=== PATIENT | female | born 1950 | race Caucasian/White ===

== ENCOUNTER → 2016-08-15 | Outpatient (CLI) | payer MEDICARE ==
[2016-08-15 09:17] LABS: Basophils % (A) 1 %; CH 30.3; Eosinophils # (A) 0.2 k/uL (0-0.7); Eosinophils % (A) 5 %; HCT 37.3 % (34.0-46.0); HDW 2.21; HGB 11.8 gm/dL (11.4-16.0); Luc # (Auto) 0.09; Luc % (Auto) 3; Lymphocytes # (A) 0.9 k/uL (1.0-4.8); Lymphocytes % (A) 26 %; MCH 30.2 pg (25.0-35.0); MCHC 31.7 g/dL (31.0-37.0); MCV 95.1 fL (80.0-100.0); Mean Platelet Volume 7.3; Monocytes # (A) 0.2 k/uL (0-1.0); Monocytes % (A) 6 %; Neutrophils # (A) 2.1 k/uL (1.3-7.7); Neutrophils % (A) 59 %; RBC 3.93 m/uL (3.80-5.40); RDW 13.1 % (11.5-15.5); WBC 3.5 k/uL (3.8-10.6); WBC (Perox) 3.65
[2016-08-15 09:27] LABS: ALT 32 U/L (9-52); AST 27 U/L (14-36); Alkaline Phosphatase 75 U/L (38-126); Anion Gap 7 mmol/L; Blood Urea Nitrogen 13 mg/dL (7-17); Calcium 9.3 mg/dL (8.4-10.2); Carbon Dioxide 28 mmol/L (22-30); Chloride 107 mmol/L (98-107); Cholesterol 205 mg/dL (<200); Glucose 90 mg/dL (74-99); HDL Cholesterol 69 mg/dL (40-60); Non-African American GFR(MDRD) >60 (>60 ml/min/1.73 sqM); Potassium 4.4 mmol/L (3.5-5.1); Sodium 142 mmol/L (137-145); Total Bilirubin 0.7 mg/dL (0.2-1.3); Total Protein 6.4 g/dL (6.3-8.2); Triglycerides 76 mg/dL (<150)
== END ==
LOC: LABWHC1 08:28
PROVIDERS: ATTEND Internal Medicine
DX: Z00.00 Encounter for general adult medical examination without abnormal findings (principal); E78.5 Hyperlipidemia, unspecified; I10 Essential (primary) hypertension; E55.9 Vitamin D deficiency, unspecified
CPT/HCPCS: 36415; 80053; 80061; 82306; 84439; 84443; 85025

== ENCOUNTER → 2017-12-04 | Outpatient (CLI) | payer MEDICARE ==
--- NOTE | 2017-12-04 14:33 | MM ---
Reason for exam: additional evaluation requested from prior study. Last mammogram was performed 2 years and 1 month ago. History: Patient is postmenopausal, has history of breast cancer at age 51, and has history of high-risk lesion on a previous biopsy at age 51. Family history of breast cancer in mother at age 70. High risk MG stereo VAD BX RT of the right breast, December 06, 2015. High risk excisional biopsy of the left breast, May 08, 2002. High risk stereotactic core biopsy of the left breast, April 24, 2002. High risk stereotactic core biopsy of the left breast, April 24, 2002. Core biopsy of the left breast. Excisional biopsy of the left breast. Lumpectomy of the left breast. Took hormonal contraceptives for 10 years. Took estrogen for 1 year beginning at age 35. Took tamoxifen for 5 years beginning at age 51. Physical Findings: Nurse did not find any significant physical abnormalities on exam. MG 3D Diag Mammo W/Cad OWEN Bilateral CC and MLO view(s) were taken. Prior study comparison: November 17, 2015, bilateral MG 3d diag mammo w/cad OWEN. August 05, 2014, bilateral MG diagnostic mammo w CAD OWEN. There are scattered fibroglandular densities. Distortion right upper outer quadrant middle position, may be post surgical change from 2016 biopsy. These results were verbally communicated with the patient and result sheet given to the patient on 12/04/17. ASSESSMENT: Probably benign, BI-RAD 3 RECOMMENDATION: Follow-up diagnostic mammogram of the right breast in 6 months.
--- NOTE | 2017-12-04 16:23 | BD ---
EXAMINATION TYPE: Axial Bone Density DATE OF EXAM: 12/04/2017 COMPARISON: NONE CLINICAL HISTORY: Height: 5 FT 3 1/2 IN Weight: 192 FRAX RISK QUESTIONS: History of Fracture in Adulthood: YES Secondary Osteoporosis: RISK FACTORS HISTORY OF: History of Wrist Fracture: LT WRIST When: 2017 Active: YES Postmenopausal woman: PART HYST AGE 35 Take estrogen and/or progesterone medications: TOOK ESTORGEN FOR ONE YEAR NO LONGER Lost more than 2 inches in height since high school: YES MEDICATIONS: Thyroid Medications: YES Which medication: LEVOTHYROXINE How Lon YEARS Additional Medications: LEVOTHYROXINE, BLOOD PRESSURE MEDS, PAXIL, Additional History: EXAM MEASUREMENTS: Bone mineral densitometry was performed using the [employer] System. Bone mineral density as measured about the Lumbar spine is: ----- L1-L4(G/cm2): 1.036 T Score Values are as follows: ----- L2: -0.9 ----- L3: -1.1 ----- L4: -1.2 ----- L1-L4: -1.2 Bone mineral density has: INCREASED 2.5 % since study of: 2014 Bone mineral density about the R hip (g/cm2): 0.935 Bone mineral density about the L hip (g/cm2): 0.848 T Score values are as follows: -----R Neck: -0.7 -----L Neck: -1.4 -----R Total: -0.3 -----L Total: -0.5 Bone mineral density has: DECREASED -3.7 % since study of: 2014 IMPRESSION: Osteopenia (T Score between -2.5 and -1). There is slightly increased risk of fracture and the patient may be considered for treatment. Re-Screen 2-5 years. NOTE: T-SCORE=SD OF THE YOUNG ADULT MEAN.
== END ==
LOC: RADMAMWWP 13:34
PROVIDERS: ATTEND Internal Medicine
DX: Z08 Encounter for follow-up examination after completed treatment for malignant neoplasm (principal); Z85.3 Personal history of malignant neoplasm of breast; M85.80 Other specified disorders of bone density and structure, unspecified site; Z78.0 Asymptomatic menopausal state
CPT/HCPCS: 77080; 77066; G0279; 77062

== ENCOUNTER → 2018-08-20 | Outpatient (CLI) | payer MEDICARE ==
--- NOTE | 2018-08-20 14:08 | MM ---
Reason for exam: follow-up at short interval from prior study. Last mammogram was performed 9 months ago. History: Patient is postmenopausal, has history of breast cancer at age 51, and has history of high-risk lesion on a previous biopsy at age 51. Family history of breast cancer in mother at age 70. High risk MG stereo VAD BX RT of the right breast, December 06, 2015. High risk excisional biopsy of the left breast, May 08, 2002. High risk stereotactic core biopsy of the left breast, April 24, 2002. High risk stereotactic core biopsy of the left breast, April 24, 2002. Core biopsy of the left breast. Excisional biopsy of the left breast. Lumpectomy of the left breast. Took hormonal contraceptives for 10 years. Took estrogen for 1 year beginning at age 35. Took tamoxifen for 5 years beginning at age 51. Physical Findings: Nurse did not find any significant physical abnormalities on exam. MG 3D Diag Mammo W/Cad RT CC and MLO view(s) were taken of the right breast. Prior study comparison: December 04, 2017, bilateral MG 3d diag mammo w/cad OWEN. November 17, 2015, bilateral MG 3d diag mammo w/cad OWEN. There are scattered fibroglandular densities. No suspicious abnormality. Post biopsy change on the right and oil cyst are noted and benign. These results were verbally communicated with the patient and result sheet given to the patient on 08/20/18. ASSESSMENT: Benign, BI-RAD 2 RECOMMENDATION: Routine screening mammogram of both breasts in 3 months. Back on schedule for November 2018.
== END | disposition home or self-care (01) ==
LOC: RADMAMWWP 12:59
PROVIDERS: ATTEND Internal Medicine
DX: R92.8 Other abnormal and inconclusive findings on diagnostic imaging of breast (principal)
CPT/HCPCS: 77065; G0279; 77061

== ENCOUNTER → 2018-08-28 | Outpatient (CLI) | payer MEDICARE ==
[2018-08-28 10:18] LABS: Basophils % (A) 1 %; Eosinophils # (A) 0.2 k/uL (0-0.7); Eosinophils % (A) 6 %; HCT 35.9 % (34.0-46.0); HGB 11.7 gm/dL (11.4-16.0); Lymphocytes # (A) 1.1 k/uL (1.0-4.8); Lymphocytes % (A) 30 %; MCH 30.8 pg (25.0-35.0); MCHC 32.5 g/dL (31.0-37.0); MCV 94.5 fL (80.0-100.0); Mean Platelet Volume 7.1; Monocytes # (A) 0.2 k/uL (0-1.0); Monocytes % (A) 6 %; Neutrophils % (A) 55 %; Platelet Count 219 k/uL (150-450); WBC 3.6 k/uL (3.8-10.6)
[2018-08-28 16:58] LABS: African American GFR (CKD) 87.2 (60.0-200.0); Albumin 4.1 g/dL (3.80-4.90); Albumin/Globulin Ratio 2.05 (1.60-3.17); BUN/Creat Ratio 17.5 Ratio (12.00-20.00); Calcium 9.1 mg/dL (8.7-10.3); LDL Cholesterol,Calculated 129.8 mg/dL (0.0-131.0); Potassium 4.8 mmol/L (3.5-5.5); Total Bilirubin 0.5 mg/dL (0.3-1.2); Total Protein 6.1 g/dL (6.2-8.2); VLDL Calculation 16.2 mg/dL (5.00-40.00)
== END | disposition home or self-care (01) ==
LOC: LABWHC1 09:44
PROVIDERS: ATTEND Internal Medicine
DX: E78.5 Hyperlipidemia, unspecified (principal); I10 Essential (primary) hypertension; E55.9 Vitamin D deficiency, unspecified
CPT/HCPCS: 36415; 80053; 80061; 82306; 84439; 84443; 85025

== ENCOUNTER → 2019-01-29 | Outpatient (CLI) | payer MEDICARE ==
--- NOTE | 2019-01-30 10:49 | MM ---
Reason for exam: screening (asymptomatic). Last mammogram was performed 5 months ago. History: Patient is postmenopausal, has history of breast cancer at age 51, and has history of high-risk lesion on a previous biopsy at age 51. Family history of breast cancer in mother at age 70. High risk MG stereo VAD BX RT of the right breast, December 06, 2015. High risk excisional biopsy of the left breast, May 08, 2002. High risk stereotactic core biopsy of the left breast, April 24, 2002. High risk stereotactic core biopsy of the left breast, April 24, 2002. Core biopsy of the left breast. Excisional biopsy of the left breast. Lumpectomy of the left breast. Took hormonal contraceptives for 10 years. Took estrogen for 1 year beginning at age 35. Took tamoxifen for 5 years beginning at age 51. Physical Findings: A clinical breast exam by your physician is recommended on an annual basis and results should be correlated with mammographic findings. MG 3D Screening Mammo W/Cad Bilateral CC, MLO, and XCCL view(s) were taken. Prior study comparison: August 20, 2018, right breast MG 3d diag mammo w/cad RT. December 04, 2017, bilateral MG 3d diag mammo w/cad OWEN. There are scattered fibroglandular densities. Stable oil cyst right breast. No significant changes when compared with prior studies. ASSESSMENT: Benign, BI-RAD 2 RECOMMENDATION: Routine screening mammogram of both breasts in 1 year.
== END | disposition home or self-care (01) ==
LOC: RADMAMWWP 09:27
PROVIDERS: ATTEND Internal Medicine
DX: Z12.31 Encounter for screening mammogram for malignant neoplasm of breast (principal)
CPT/HCPCS: 77063; 77067

== ENCOUNTER 2019-02-17 09:49 | Day surgery (SDC) | payer MEDICARE ==
[2019-02-10 12:13] VITALS: BMI 31.1
[~2019-02-17 09:49] MED LIST: SODIUM CHLORIDE 0.9% 1,000 ML IV SCH
[2019-02-17 10:35] VITALS: BP 179/80; PULSE 85; RESP 16; TEMP 97.7
[2019-02-17] MEDS ORDERED: SODIUM CHLORIDE 0.9% 500 ML 500 ML IV ONE (10:35)
--- NOTE | 2019-02-17 13:28 | P.PCN ---
Preoperative Diagnosis: Diagnosis Recurrent presyncope Twelve-lead ECG shows sinus mechanism 91 beats a minute normal AR narrow QRS normal ST segments Tilt table test per protocol Baseline blood pressure 200/88 mmHg, heart rate 92 beats a minute Patient was tilted upright at an angle of 70 per protocol She complained of being shaky and her heart was racing. She remained hypertensive throughout study She was very anxious to the procedure She was laid supine at the end of the procedure Impression Normal twelve-lead EKG Hypertension, both systolic and diastolic with heart rates in the 80s and 90s beats per minute No evidence for neurocardiogenic syncope
== END 2019-02-17 12:51 | disposition home or self-care (01) ==
LOC: CATHEP 09:49
PROVIDERS: ATTEND Internal Medicine Clinical Cardiac Electrophysiology
DX: R55 Syncope and collapse (principal); R00.2 Palpitations; I10 Essential (primary) hypertension; Z82.49 Family history of ischemic heart disease and other diseases of the circulatory system; Z87.891 Personal history of nicotine dependence; Z79.82 Long term (current) use of aspirin; Z79.890 Hormone replacement therapy; Z79.51 Long term (current) use of inhaled steroids; Z79.899 Other long term (current) drug therapy; Z88.5 Allergy status to narcotic agent
CPT/HCPCS: 93660

== ENCOUNTER → 2019-08-26 | Outpatient (CLI) | payer MEDICARE ==
[2019-08-26 16:42] LABS: African American GFR (CKD) 75.1 (60.0-200.0); Anion Gap 7.2 mmol/L (4.00-12.00); BUN/Creat Ratio 17.78 Ratio (12.00-20.00); Calcium 9.1 mg/dL (8.7-10.3); Carbon Dioxide 26.8 mmol/L (21.6-31.8); Non-African American GFR(CKD) 64.8 (60.0-200.0); Potassium 4.5 mmol/L (3.5-5.5)
== END | disposition home or self-care (01) ==
LOC: LABWHC1 09:37
PROVIDERS: ATTEND Internal Medicine Interventional Cardiology
DX: I10 Essential (primary) hypertension (principal)
CPT/HCPCS: 36415; 80048

== ENCOUNTER → 2020-03-22 | Outpatient (CLI) | payer MEDICARE ==
--- NOTE | 2020-03-22 10:12 | MM ---
Reason for exam: additional evaluation requested from prior study. Last mammogram was performed 1 year and 2 months ago. History: Patient is postmenopausal, has history of breast cancer at age 51, and has history of high-risk lesion on a previous biopsy at age 51. Family history of breast cancer in mother at age 70. High risk MG stereo VAD BX RT of the right breast, December 06, 2015. High risk excisional biopsy of the left breast, May 08, 2002. High risk stereotactic core biopsy of the left breast, April 24, 2002. High risk stereotactic core biopsy of the left breast, April 24, 2002. Core biopsy of the left breast. Excisional biopsy of the left breast. Lumpectomy of the left breast. Took hormonal contraceptives for 10 years. Took estrogen for 1 year beginning at age 35. Took tamoxifen for 5 years beginning at age 51. Physical Findings: Nurse did not find any significant physical abnormalities on exam. MG 3D Diag Mammo W/Cad OWEN Bilateral CC and MLO view(s) were taken. Prior study comparison: January 29, 2019, bilateral MG 3d screening mammo w/cad. August 20, 2018, right breast MG 3d diag mammo w/cad RT. There are scattered fibroglandular densities. Focal asymmetry right breast. No significant new findings when compared with previous films. These results were verbally communicated with the patient and result sheet given to the patient on 03/22/20. ASSESSMENT: Benign, BI-RAD 2 RECOMMENDATION: Follow-up diagnostic mammogram of both breasts in 1 year.
== END | disposition home or self-care (01) ==
LOC: RADMAMWWP 08:46
PROVIDERS: ATTEND Internal Medicine
DX: Z08 Encounter for follow-up examination after completed treatment for malignant neoplasm (principal); Z85.3 Personal history of malignant neoplasm of breast
CPT/HCPCS: 77066; G0279; 77062

== ENCOUNTER → 2021-01-24 | Outpatient (CLI) | payer MEDICARE ==
--- NOTE | 2021-01-24 14:37 | BD ---
EXAMINATION TYPE: Axial Bone Density DATE OF EXAM: 01/24/2021 COMPARISON: 12.04.2017 CLINICAL HISTORY: 70 YR OLD FEMALE.....ICD-10 CODE: M85.80 OSTEOPENIA Height: 64 Weight: 196 FRAX RISK QUESTIONS: Family History (Parent hip fracture): NO FX History of Fracture in Adulthood: YES RISK FACTORS HISTORY OF: HX OF LT THUMB FX AN ADULT, Family History of Osteoporosis: YES, MOTHER AND GR MOTHER NO FX Postmenopausal woman: YES AT 49 Lost more than 2 inches in height since high school: YES Hyperparathyroidism: NO Adrenal Insufficiency: NO MEDICATIONS: Thyroid Medications: YES, SYNTHROID FOR ABOUT 10 YRS Additional Medications: BP MEDS, PAXIL , TAMOXIFEN, STATIN FOR CHOLESTEROL, VIT D , , Additional History: HX OF BREAST CA BILAT, LUMPECTOMIES, TOMOXIN FOR 5 YRS, HYPERTENSION, LOOP RECORD ER, CHOLESTEROL, EXAM MEASUREMENTS: Bone mineral densitometry was performed using the [employer] System. Bone mineral density as measured about the Lumbar spine is: ----- L1-L4(G/cm2): 1.050 T Score Values are as follows: ----- L1: -2.0 ----- L2: -1.0 ----- L3: -1.1 ----- L4: -0.5 ----- L1-L4: -1.1 Bone mineral density has: Increased 2.4% since study of: 12.04.2017 Bone mineral density about the R hip (g/cm2): 0.976 Bone mineral density about the L hip (g/cm2): 0.942 T Score values are as follows: -----R Neck: -0.7 -----L Neck: -1.3 -----R Total: -0.2 -----L Total: -0.5 Bone mineral density has: Increased 0.2% since study of: 12.04.2017 FRAX%s: THERE IS A 14.6% CHANCE FOR A MAJOR OSTEOPOROTIC FX AND A1.9% FOR HIP......PROBABILITY FO R FX IN 10 YRS TIME IMPRESSION: Osteopenia (T Score between -2.5 and -1) remains present. There is slightly increased risk of fracture and the patient may be considered for treatment. Re-Screen 2-5 years. NOTE: T-SCORE=SD OF THE YOUNG ADULT MEAN.
== END | disposition home or self-care (01) ==
LOC: RADBDWWP 11:18
PROVIDERS: ATTEND Internal Medicine
DX: M85.89 Other specified disorders of bone density and structure, multiple sites (principal); Z78.0 Asymptomatic menopausal state
CPT/HCPCS: 77080

== ENCOUNTER → 2022-01-11 | Outpatient (CLI) | payer MEDICARE ==
[2022-01-11 10:43] LABS: Appearance,Urine Clear (Clear); Bacteria,Urine Occasional /hpf; Bilirubin,Urine Negative (Negative); Blood,Urine Negative (Negative); Color,Urine Yellow; Glucose,Urine (UA) Negative (Negative); Ketones,Urine Negative (Negative); Leukocyte Esterase,Urine Moderate (Negative); Mucus,Urine Occasional /hpf; Nitrite,Urine Negative (Negative); Protein,Urine Negative (Negative); RBC,Urine <1 /hpf (0-5); Specific Gravity,Urine 1.018 (1.001-1.035); Squamous Epithelial Cell,Urine 3 /hpf (0-4); Urobilinogen,Urine <2.0 mg/dL (<2.0); WBC,Urine 9 /hpf (0-5)
[2022-01-11 15:39] LABS: Basophils # (A) 0.06 X 10*3/uL (0.00-0.10); Basophils % (A) 1.5 %; Eosinophils # (A) 0.23 X 10*3/uL (0.04-0.35); Eosinophils % (A) 5.7 %; HCT 34.1 % (37.2-46.3); HGB 11.2 g/dL (12.0-15.0); Immature Grans, Automated 0.2 %; Lymphocytes # (A) 1.21 X 10*3/uL (0.90-5.00); Lymphocytes % (A) 30.2 %; MCHC 32.8 g/dL (32.0-37.0); MCV 94.5 fL (80.0-97.0); Mean Platelet Volume 10.3 fL (9.5-12.2); Monocytes # (A) 0.34 X 10*3/uL (0.20-1.00); Monocytes % (A) 8.5 %; NRBC Per 100 WBC 0 /100 WBCS (0.0-0.0); Neutrophils # (A) 2.16 X 10*3/uL (1.80-7.70); Neutrophils % (A) 53.9 %; Platelet Count 212 X 10*3/uL (140-440); RBC 3.61 X 10*6/uL (4.10-5.20); RDW 12.3 % (11.5-14.5); WBC 4.01 X 10*3/uL (4.50-10.00)
[2022-01-11 15:41] LABS: ALT 21 U/L (8-44); AST 23 U/L (13-35); African American GFR (CKD) 65.2 (60.0-200.0); Albumin 4.3 g/dL (3.8-4.9); Albumin/Globulin Ratio 1.79 (1.60-3.17); Alkaline Phosphatase 67 U/L (41-126); Blood Urea Nitrogen 18.8 mg/dL (9.0-27.0); Calcium 9.4 mg/dL (8.7-10.3); Chloride 105 mmol/L (96-109); Chol/HDL Ratio 2.53 Ratio; Globulin 2.4 g/dL (1.6-3.3); Glucose 96 mg/dL (70-110); LDL Cholesterol,Calculated 86.4 mg/dL (0.0-131.0); Non-African American GFR(CKD) 56.2 (60.0-200.0); Sodium 141 mmol/L (135-145); Total Protein 6.7 g/dL (6.2-8.2)
== END | disposition home or self-care (01) ==
LOC: LABWHC1 09:19
PROVIDERS: ATTEND Internal Medicine
DX: I10 Essential (primary) hypertension (principal); E03.9 Hypothyroidism, unspecified; M85.80 Other specified disorders of bone density and structure, unspecified site
CPT/HCPCS: 36415; 80053; 80061; 81001; 82306; 84439; 84443; 85025

== ENCOUNTER → 2022-02-15 | Outpatient (CLI) | payer MEDICARE ==
--- NOTE | 2022-02-16 16:37 | MM ---
Reason for Exam: Screening (asymptomatic). Last mammogram was performed 1 year(s) and 11 month(s) ago. Patient History: Menarche at age 9. First Full-Term at age 21. Hysterectomy at age 35. Postmenopausal. Patient has history of breast feeding. Breast cancer, left, age 51. Estrogen for 1 year from age 35 until age 36. Patient used Hormonal Contraceptives for 10 years. Tamoxifen for 5 years from age 51 until age 56. Lumpectomy on the Left side. Core Biopsy on the Left side. Excisional Biopsy on the Left side. 12/06/2015, High risk Core Biopsy on the right side. 05/08/2002, High risk Excisional Biopsy on the left side. 04/24/2002, High risk Stereotactic Core Biopsy on the left side. 04/24/2002, High risk Stereotactic Core Biopsy on the left side. Mother had breast cancer, age 70. Prior Study Comparison: 01/29/1997 Screening Mammogram, Unknown. 12/14/2005 Bilateral Diagnostic Mammogram, [facility]. 12/14/2005 Left Diagnostic Ultrasound, [facility]. 03/21/2007 Bilateral Diagnostic Mammogram, [facility]. 04/23/2008 Bilateral Diagnostic Mammogram, [facility]. 10/26/2010 Bilateral Diagnostic Mammogram, [facility]. 06/02/2012 Bilateral Diagnostic Mammogram, [facility] 06/02/2013 Bilateral Screening Mammogram, [facility]. 08/05/2014 Bilateral Diagnostic Mammogram, [facility]. 11/17/2015 Bilateral Diagnostic Mammogram, [facility]. 12/04/2017 Bilateral Diagnostic Mammogram, [facility]. 08/20/2018 Right Diagnostic Mammogram, [facility]. 01/29/2019 Bilateral Screening Mammogram, [facility]. 03/22/2020 Bilateral Diagnostic Mammogram, [facility]. Tissue Density: The breast tissue is almost entirely fat. Findings: Analyzed By CAD. Pattern appears stable. Spherical calcified structures in the right breast. Recorder is within the left breast. No significant interval changes are evident. No suspicious groups of microcalcifications, spiculated or lobular masses, architectural distortion or other secondary signs of malignancy are mammographically apparent. Overall Assessment: Benign, BI-RAD 2 Management: Screening Mammogram of both breasts in 1 year. A negative mammogram report should not preclude additional follow up of suspicious palpable abnormalities. Patient should continue monthly self breast exam. A clinical breast exam by your physician is recommended on an annual basis and results should be correlated with mammographic findings. Electronically signed and approved by: Manuel Calhoun D.O. Radiologis
== END | disposition home or self-care (01) ==
LOC: RADMAMWWP 11:28
PROVIDERS: ATTEND Internal Medicine
DX: Z12.31 Encounter for screening mammogram for malignant neoplasm of breast (principal); Z78.0 Asymptomatic menopausal state; Z80.3 Family history of malignant neoplasm of breast
CPT/HCPCS: 77063; 77067

== ENCOUNTER → 2023-02-26 | Outpatient (CLI) | payer MEDICARE ==
--- NOTE | 2023-02-26 12:05 | US ---
EXAMINATION TYPE: US carotid duplex BILAT DATE OF EXAM: 02/26/2023 COMPARISON: NONE CLINICAL INDICATION: Female, 72 years old with history of H93.A9 PULSATILE TINNITUS, UNSPECIFIED EAR; Tinnitus left ear TECHNIQUE: Carotid duplex ultrasound examination. Indirect Doppler criteria was utilized. FINDINGS: EXAM MEASUREMENTS: RIGHT: Peak Systolic Velocity (PSV) cm/sec ----- Right CCA: 71.5 ----- Right ICA: 116 ----- Right ECA: 94.7 ICA/CCA ratio: 1.62 RIGHT: End Diastole cm/sec ----- Right CCA: 17.5 ----- Right ICA: 26.4 ----- Right ECA: 8.0 LEFT: Peak Systolic Velocity (PSV) cm/sec ----- Left CCA: 88.4 ----- Left ICA: 194 ----- Left ECA: 119 ICA/CCA ratio: 2.19 LEFT: End Diastole cm/sec ----- Left CCA: 26.4 ----- Left ICA: 53.7 ----- Left ECA: 25.3 VERTEBRALS (direction of flow): Right Vertebral: Antegrade Left Vertebral: Antegrade Rhythm: Normal RAIL TECHNICIAN NOTES: Mild plaque bilateral bifurcations. Increased velocities left ICA IMPRESSION: 1. Moderate narrowing left internal carotid artery between 50 and 69%. Criteria for Assigning % of Stenosis / Diameter reduction (Estimation based on the indirect measurements of the internal carotid artery velocities (ICA PSV). 1. Normal (no stenosis)=ICA PSV < 125 cm/s: ratio < 2.0: ICA EDV<40 cm/s. 2. Less than 50% stenosis=ICA PSV < 125 cm/s: ratio < 2.0: ICA EDV<40 cm/s. 3. 50 to 69% stenosis=ICA PSV of 125 to 230 cm/s: ration 2.0 ? 4.0: ICA EDV 40-100 cm/s. 4. Greater than 70% stenosis to near occlusion= ICA PSV > 230 cm/s: ratio > 4.0: ICA EDV > 100 cm/s. 5. Near occlusion= ICA PSV velocities may be low or undetectable: variable ratio and ICA EDV. 6. Total occlusion=unable to detect flow.
== END | disposition home or self-care (01) ==
LOC: RADUSWWP 10:50
PROVIDERS: ATTEND Internal Medicine
DX: I65.22 Occlusion and stenosis of left carotid artery (principal); H93.A2 Pulsatile tinnitus, left ear
CPT/HCPCS: 93880

== ENCOUNTER → 2023-03-04 | Outpatient (CLI) | payer MEDICARE ==
--- NOTE | 2023-03-04 11:48 | P.SLEEP ---
History of Present Illness DATE: 03/04/2023 CONSULTATION/NEW PATIENT EVALUATION HISTORY OF PRESENT ILLNESS/SLEEP-WAKE EVALUATION: 72-year-old lady had been ev aluated in the sleep center for possible obstructive sleep apnea hypopnea syndrome. SLEEP SCHEDULE: Usually sleep schedule from 10:30 PM to 7:30 AM. FALLING ASLEEP: Sometimes patient has difficulties with falling asleep, watching clock at night. DURING SLEEP: Patient snores on the back position and wakes up from sleep 2 times with one episode of nocturia. No history of hypnogogical hallucinations, sleep paralysis, or cataplexy. DURING THE DAY/WAKE STATE: During the day patient may feel sleepiness especially afternoon. [place] sleepiness scale is 3. Patient may take short naps during the day. PAST MEDICAL HISTORY: Hypertension, asthma, hypothyroidism, anxiety. PAST SURGICAL HISTORY: Partial hysterectomy, breast lumpectomy, left leg surgery for venous problems, appendectomy. MEDICATIONS: Paroxetine 10 mg once a day, levothyroxine 37.5 g once a day, metoprolol 50 mg once a day, losartan 100 mg once a day, rosuvastatin 5 mg once a day, hydrochlorothiazide 25 mg once a day, Symbicort as needed. SOCIAL HISTORY: Negative for smoking, alcohol consumption occasional. FAMILY HISTORY: &, Hyperlipidemia, cancer, thyroid problems. REVIEW OF SYSTEMS: Snoring, awakenings from sleep, sleepiness during the day. No fevers. No double vision. No recent chest pain. No shortness of breath. No abdominal pain. No bleeding episodes. No blood in urine. No seizure episodes. PHYSICAL EXAMINATION: GENERAL: A pleasant patient without any distress. VITAL SIGNS: BP 118/59, HR 64, RR 16, weight 189.6 pounds, height 5 foot 4 inches, body mass index 32.4. HEENT: PERRLA, EOMI. Evaluation of oropharynx showed tongue protrudes midline, low position of soft palate Mallampati 4. NECK: Supple. No JVD. Thyroid is not palpable. 15.5 inches in circumference. LUNGS: Clear to percussion and to auscultation. Good air exchange. No wheezing or rhonchi. HEART: S1, S2 regular. No murmurs, gallops or rubs. ABDOMEN: Soft and nontender. Bowel sounds are present. No organomegaly appreciated. EXTREMITIES: No clubbing or cyanosis. FISHERIES DIRECTOR: Awake, alert, and oriented x3. Cranial nerves 2 to 7 intact. There is no fasciculation or atrophy noted. No focal deficits observed. ASSESSMENT: 1. Snoring, multiple awakenings from sleep, extremely low position of soft palate Mallampati 4, episodes of sleepiness during the day. Obstructive sleep apnea hypopnea syndrome. 2. Obesity, BMI 32.4. 3. Hypertension. 4. Asthma. 5 hypothyroidism. 6 . Anxiety. 7. Status post partial hysterectomy. 8. Status post bilateral lumpectomy from the breast [id number]. 9 . Status post left leg surgery for venous problems. 10. Status post appendectomy. PLAN: 1. Polysomnography for evaluation of patient's breathing during sleep. 2. CPAP/BiPAP titration if sleep study confirms obstructive sleep apnea- hypopnea syndrome. 3. Preferable position during sleep on the side. 4. No driving if patient feels any sleepiness. Patient is aware of civil and criminal liability for unsafe driving. 5. Sleep hygiene with regular sleep time for at least 7.5-8 hours. 6. Watching and losing weight. 7. No watching clock at night. Thank you very much for referring this patient for consultation. Sincerely, Phillip Villanueva MD, PhD, FAASM. Diplomat of [place], Sleep Medicine Board by [place] [employer] Patent Solicitor of [facility] [place] pain a few located Past Medical History Past Medical History: Asthma, Hypertension, Pneumonia, Syncope, Thyroid Disorder Additional Past Medical History / Comment(s): intermittent lightheadedness for over a year, see Dr Glasgow [facility] & [facility], IBS @times, took tamoxifen for 5 years after left breast lumpectomy History of Any Multi-Drug Resistant Organisms: None Reported Past Surgical History: Appendectomy, Breast Surgery, Hysterectomy Additional Past Surgical History / Comment(s): RIGHT LEG-VEIN STRIPPING, LEFT BREAST -LUMPECTOMY, right breast bx. Past Anesthesia/Blood Transfusion Reactions: Motion Sickness, Postoperative Nausea & Vomiting (PONV) Past Alcohol Use History: Rare - Past Family History Mother Family Medical History: Cancer Additional Family Medical History / Comment(s): BREAST CANCER Medications and Allergies Home Medications Medication Instructions Recorded Confirmed Type Budesonide-Formot 160-4.5 Mcg 2 puff INHALATION BID PRN 12/29/15 12/11/22 History [Symbicort 160-4.5 Mcg Inhaler] Levothyroxine Sodium [Synthroid] 37.5 tab PO DAILY 12/29/15 12/11/22 History PARoxetine [Paxil] 10 mg PO DAILY 12/29/15 12/11/22 History Metoprolol Succinate (ER) [Toprol 50 mg PO DAILY 11/13/19 12/11/22 History Xl] Cholecalciferol [Vitamin D3 (25 100 mcg PO DAILY 06/15/21 12/11/22 History Mcg = 1000 Iu)] Losartan Potassium 50 mg PO BID 06/15/21 12/11/22 History Rosuvastatin Calcium [Crestor] 5 mg PO HS 06/15/21 12/11/22 History Allergies Allergy/AdvReac Type Severity Reaction Status Date / Time codeine Allergy Hallucinations, Verified 12/11/22 08:23 VOMITING Sleep Note - Sleep Note Sleep Note: Temperature: Pulse Rate: Respiratory Rate: Blood Pressure: SpO2: Height: Weight: BMI: Neck Circumference:
== END ==
LOC: 3 N SLEEP 10:40
PROVIDERS: ATTEND Internal Medicine
DX: G47.33 Obstructive sleep apnea (adult) (pediatric) (principal); R06.83 Snoring; E66.9 Obesity, unspecified; I10 Essential (primary) hypertension; J45.909 Unspecified asthma, uncomplicated; E03.9 Hypothyroidism, unspecified; F41.9 Anxiety disorder, unspecified; Z90.711 Acquired absence of uterus with remaining cervical stump; Z90.13 Acquired absence of bilateral breasts and nipples; Z90.49 Acquired absence of other specified parts of digestive tract; Z68.32 Body mass index [BMI] 32.0-32.9, adult; Z88.5 Allergy status to narcotic agent; Z79.899 Other long term (current) drug therapy; Z87.891 Personal history of nicotine dependence
CPT/HCPCS: 99211

== ENCOUNTER → 2023-03-20 | Outpatient (CLI) | payer MEDICARE ==
--- NOTE | 2023-03-20 09:06 | US ---
EXAMINATION TYPE: US abdomen complete DATE OF EXAM: 03/20/2023 COMPARISON: NONE CLINICAL INDICATION: Female, 72 years old with history of R74.01 ELEVATION OF LEVELS OF LIVER TRANSA N18.31; CKD TECHNIQUE: Multiple sonographic images of the abdomen are obtained. FINDINGS: EXAM MEASUREMENTS: Liver Length: 12.2 cm Gallbladder Wall: 0.15 cm CBD: 0.23 cm Spleen: 9.1 x 8.4 x 3.8 cm Right Kidney: 10.4 x 5.0 x 4.7 cm Left Kidney: 9.2 x 4.0 x 4.1 cm CUSTODIAL WORKER NOTES: Difficult exam due to overlying bowel and bowel gas Pancreas: Body and tail obscured by overlying bowel gas Liver: Somewhat limited evaluation; appears wnl Gallbladder: Appears wnl; limited by overlying bowel gas Evidence for sonographic Louise's sign: No CBD: wnl Spleen: wnl Right Kidney: wnl Left Kidney: wnl Upper IVC: wnl Abd Aorta: wnl IMPRESSION: 1. No acute ultrasound abnormality
== END | disposition home or self-care (01) ==
LOC: RADUSWWP 08:17
PROVIDERS: ATTEND Internal Medicine
DX: N18.31 Chronic kidney disease, stage 3a (principal); R74.01 Elevation of levels of liver transaminase levels
CPT/HCPCS: 76700

== ENCOUNTER → 2023-04-01 | Outpatient (CLI) | payer MEDICARE ==
--- NOTE | 2023-04-01 11:49 | BD ---
EXAMINATION TYPE: Axial Bone Density DATE OF EXAM: 04/01/2023 CLINICAL HISTORY: 72 years old Female. ICD-10 CODE: M85.80 OTH DISRD OF BONE DENSITY Height: 64 in Weight: 188 lbs FRAX RISK QUESTIONS: History of Fracture in Adulthood: lt hand fx age 67 Secondary Osteoporosis: 3. Menopause before 44: partial hysterectomy age 34 RISK FACTORS HISTORY OF: Family History of Osteoporosis: yes mom and grandmother (m) Active: moderate Diet low in dairy products/other sources of calcium: yes Postmenopausal woman: partial hysterectomy age 34 Lost more than 2 inches in height since high school: yes 3" MEDICATIONS: Thyroid Medications: yes Which medication: Levothyroxine How Lon+ years Additional Medications: vit d, blood pressure meds, anxiety meds, water pill, EXAM MEASUREMENTS: Bone mineral densitometry was performed using the [employer] System. Bone mineral density as measured about the Lumbar spine is: ----- L1-L4(G/cm2): 1.007 T Score Values are as follows: ----- L1: -1.8 ----- L2: -1.4 ----- L3: -1.7 ----- L4: -1.1 ----- L1-L4: -1.4 Z Score Values are as follows: ----- L1: -0.8 ----- L2: -0.3 ----- L3: -0.6 ----- L4: 0.0 ----- L1-L4: -0.4 Bone mineral density has: Decreased -4.1% since study of: 01/24/2021 Bone mineral density about the R hip (g/cm2): 0.932 Bone mineral density about the L hip (g/cm2): 0.924 T Score values are as follows: -----R Neck: -1.2 -----L Neck: -1.2 -----R Total: -0.6 -----L Total: -0.7 Z Score values are as follows: -----R Neck: 0.3 -----L Neck: 0.2 -----R Total: 0.6 -----L Total: 0.5 Bone mineral density has: Decreased -3.2% since study of: 01/24/2021 FRAX%s: The graph provided illustrates a 14.9% chance for a major osteoporotic fx and a 2.1% chance f or the hips probability for fx in 10 years time. IMPRESSION: Osteopenia (T Score between -2.5 and -1). There is slightly increased risk of fracture and the patient may be considered for treatment. Re-Screen 2-5 years. NOTE: T-SCORE=SD OF THE YOUNG ADULT MEAN.
--- NOTE | 2023-04-02 11:38 | MM ---
Reason for Exam: Screening (asymptomatic). Last mammogram was performed 1 year(s) and 1 month(s) ago. Patient History: Menarche at age 9. First Full-Term at age 21. Hysterectomy at age 35. Postmenopausal. Patient has history of breast feeding. Breast cancer, left, age 51. Estrogen for 1 year from age 35 until age 36. Patient used Hormonal Contraceptives for 10 years. Tamoxifen for 5 years from age 51 until age 56. Lumpectomy on the Left side. Core Biopsy on the Left side. Excisional Biopsy on the Left side. 12/06/2015, High risk Core Biopsy on the right side. 05/08/2002, High risk Excisional Biopsy on the left side. 04/24/2002, High risk Stereotactic Core Biopsy on the left side. 04/24/2002, High risk Stereotactic Core Biopsy on the left side. Mother had breast cancer, age 70. Prior Study Comparison: 11/17/2015 Bilateral Diagnostic Mammogram, [facility]. 12/04/2017 Bilateral Diagnostic Mammogram, [facility]. 08/20/2018 Right Diagnostic Mammogram, [facility]. 01/29/2019 Bilateral Screening Mammogram, [facility]. 03/22/2020 Bilateral Diagnostic Mammogram, [facility]. 02/15/2022 Bilateral MG 3D screening mammo w/cad, [facility]. Tissue Density: The breast tissue is almost entirely fat. Findings: Analyzed By CAD. Right breast stenosis. (Loop recorder. There is no suspicious group of microcalcifications or new suspicious mass. Overall Assessment: Benign, BI-RAD 2 Management: Screening Mammogram of both breasts in [address] [facility] will attempt to contact patient to return for supplemental views and ultrasound if indicated. Patient should continue monthly self-breast exams. A clinical breast exam by your physician is recommended on an annual basis. This exam should not preclude additional follow-up of suspicious palpable abnormalities. Note on Geovanna scores and lifetime risk: 1. A Geovanna score greater than 3% is considered moderate risk. If this is the case, consider specialist referral to assess eligibility for a risk reducing agent. 2. If overall lifetime risk for the development of breast cancer is 20% or higher, the patient may qualify for future screening with alternating mammogram and breast MRI. Electronically signed and approved by: Scooby Vernon DO
== END | disposition home or self-care (01) ==
LOC: RADMAMWWP 08:28
PROVIDERS: ATTEND Internal Medicine
DX: Z12.31 Encounter for screening mammogram for malignant neoplasm of breast (principal); M85.89 Other specified disorders of bone density and structure, multiple sites; Z78.0 Asymptomatic menopausal state; Z80.3 Family history of malignant neoplasm of breast
CPT/HCPCS: 77063; 77067; 77080

== ENCOUNTER → 2023-04-01 | Outpatient (CLI) | payer MEDICARE ==
[2023-04-01 10:49] LABS: NT-Pro-B-Type Natriuretic Pept 438 pg/mL
[2023-04-01 10:50] LABS: African American GFR (CKD) 59 (>60 ml/min/1.73 sqM); Anion Gap 7 mmol/L; Blood Urea Nitrogen 27 mg/dL (7-17); Calcium 9.5 mg/dL (8.4-10.2); Carbon Dioxide 30 mmol/L (22-30); Chloride 104 mmol/L (98-107); Glucose 100 mg/dL (74-99); Magnesium 2.1 mg/dL (1.6-2.3); Non-African American GFR(CKD) 51 (>60 ml/min/1.73 sqM); Potassium 4.8 mmol/L (3.5-5.1); Sodium 141 mmol/L (137-145)
--- NOTE | 2023-04-01 13:01 | CT ---
EXAMINATION TYPE: CT angio head neck CT DLP: 1451.8 mGycm, Automated exposure control for dose reduction was used. DATE OF EXAM: 04/01/2023 11:37 AM COMPARISON: 07/18/2009. CLINICAL INDICATION:Female, 72 years old with history of H93.A9 PULSATILE TINNITUS, UNSPECIFIED EAR; PHH, tinnitus left ear TECHNIQUE: Axially acquired helical CT angiogram of the head and neck was obtained with contrast. Axi al images are supplemented with 3D reconstructions and MIP images which were post-processed at an in dependent workstation. NASCET criteria used. Contrast used:65 mL of Isovue 370 with IV Contrast, Oral contrast used: None. FINDINGS: CTA HEAD: No evidence of acute intracranial hemorrhage, mass effect, or midline shift. The ventricles, sulci, a nd cisterns are unremarkable. Normal course of the internal carotid arteries to the petrous portion o f the temporal bones bilaterally. No evidence for carotid dehiscence. No aberrant course of the inter nal carotid arteries. The visualized portions of the internal carotid arteries, middle cerebral arteries, anterior cerebral arteries, and posterior cerebral arteries are patent. The basilar and vertebral arteries are patent. CTA NECK: Right Carotid System: The common carotid and external carotid arteries are patent. There is less than 25% stenosis at the c arotid bifurcation secondary to calcified/noncalcified plaque. The rest of the internal carotid arter y is patent. Left Carotid System: The common carotid and external carotid arteries are patent. There is less than 25% stenosis at the c arotid bifurcation secondary to calcified/noncalcified plaque. The rest of the internal carotid arter y is patent. Vertebral arteries are patent without evidence hemodynamically significant stenosis. There is a three-vessel aortic arch. The origins of the great vessels are patent. No evidence of hemo dynamically significant stenosis. Upper thorax: IMPRESSION: 1. Normal course of the internal carotid arteries through the petrous portion of the temporal bones. No evidence of dissection of the cervical internal carotid arteries or vertebral arteries or any evid ence of significant stenosis at the carotid bifurcations. 2. No evidence of intracranial high-grade stenosis or intracranial aneurysm.
== END | disposition home or self-care (01) ==
LOC: RADCTMAIN 08:07
PROVIDERS: ATTEND Internal Medicine
DX: H93.A2 Pulsatile tinnitus, left ear (principal); I50.9 Heart failure, unspecified
CPT/HCPCS: 83880; 80048; 83735; 70496; 70498; 36415; Q9967

== ENCOUNTER → 2023-07-01 | Outpatient (CLI) | payer MEDICARE ==
[2023-07-01 21:07] LABS: NT-Pro-B-Type Natriuretic Pept 556 pg/mL (0-125)
[2023-07-01 21:36] LABS: BUN/Creat Ratio 19.77 Ratio (12.00-20.00); Blood Urea Nitrogen 25.7 mg/dL (9.0-27.0); Calcium 9.7 mg/dL (8.7-10.3); Chloride 104 mmol/L (96-109); Glucose 97 mg/dL (70-110); Magnesium 2.1 mg/dL (1.5-2.4); Potassium 4.8 mmol/L (3.5-5.5); Sodium 143 mmol/L (135-145)
== END | disposition home or self-care (01) ==
LOC: LABWHC1 09:58
PROVIDERS: ATTEND Internal Medicine Cardiovascular Disease
DX: I50.9 Heart failure, unspecified (principal); I42.8 Other cardiomyopathies; I51.9 Heart disease, unspecified
CPT/HCPCS: 36415; 80048; 83735; 83880

== ENCOUNTER → 2023-09-18 | Outpatient (CLI) | payer MEDICARE ==
[2023-09-18 16:55] LABS: Blood Urea Nitrogen 29.1 mg/dL (9.0-27.0); Chloride 104 mmol/L (96-109); Glucose 92 mg/dL (70-110); NT-Pro-B-Type Natriuretic Pept 576 pg/mL (0-125); Potassium 5.1 mmol/L (3.5-5.5); Sodium 143 mmol/L (135-145)
[2023-09-18 16:56] LABS: Calcium 9.4 mg/dL (8.7-10.3); Magnesium 2.1 mg/dL (1.5-2.4)
== END | disposition home or self-care (01) ==
LOC: LABWHC1 09:22
PROVIDERS: ATTEND Internal Medicine Cardiovascular Disease
DX: I50.9 Heart failure, unspecified (principal); I42.8 Other cardiomyopathies; I51.9 Heart disease, unspecified
CPT/HCPCS: 36415; 80048; 83735; 83880

== ENCOUNTER → 2023-09-27 | Outpatient (CLI) | payer MEDICARE ==
--- NOTE | 2023-09-27 15:46 | CA ---
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 67 - 155 / 56 - 104 cm??? LV Systolic Volume MOD BP 26.2 cm??? 22 - 58 / 19 - 49 cm??? LV Ejection Fraction MOD BP 65.4 % >= 55 % LV Cardiac Index MOD BP 1458.7 cm???/min???m??? LV Diastolic Volume MOD 4C 78.4 cm??? LV Systolic Volume MOD 4C 27.9 cm??? LV Ejection Fraction MOD 4C 64.4 % LV Cardiac Index MOD 4C 1483.6 cm???/min???m??? LV Diastolic Length 4C 7.4 cm LV Systolic Length 4C 6.1 cm LV Diastolic Volume MOD 2C 64.2 cm??? LV Systolic Volume MOD 2C 20.7 cm??? LV Ejection Fraction MOD 2C 67.7 % LV Cardiac Index MOD 2C 1278.3 cm???/min???m??? LV Diastolic Length 2C 6.4 cm LV Systolic Length 2C 5.1 cm LA Volume 72.1 cm??? 18 - 58 / 22 - 52 cm??? LA Volume Index 36.6 cm???/m??? 16 - 28 cm???/m??? M-MODE Aortic Root Diameter MM 2.9 cm LA Systolic Diameter MM 3.9 cm LA Ao Ratio MM 1.3 AV Cusp Separation MM 2.0 cm DOPPLER AV Peak Velocity 139.8 cm/s AV Peak Gradient 7.8 mmHg AV Mean Velocity 92.8 cm/s AV Mean Gradient 3.9 mmHg AV Velocity Time Integral 33.8 cm MV Area PHT 3.1 cm??? Mitral E Point Velocity 99.2 cm/s Mitral A Point Velocity 61.3 cm/s Mitral E to A Ratio 1.6 MV Deceleration Time 246.9 ms TR Peak Velocity 301.1 cm/s TR Peak Gradient 36.3 mmHg Right Atrial Pressure 10.0 mmHg Pulmonary Artery Systolic Pressu 46.3 mmHg Right Ventricular Systolic Press 46.3 mmHg FINDINGS Left Ventricle Left ventricular ejection fraction is estimated at 55-60 %. Mildly increased posterior wall thickness. Normal left ventricular systolic function with no obvious regional wall motion abnormalities. Left ventricular cavity size normal. Right Ventricle Normal right ventricular size and function. Moderate pulmonary hypertension. Right Atrium Mild right atrial dilatation. Left Atrium Moderately increased left atrial diameter. Moderately increased left atrial volume. Mildly increased left atrial area. Mitral Valve Structurally normal mitral valve. [id number] mitral regurgitation. No mitral stenosis. Aortic Valve Trileaflet aortic valve. No aortic valve stenosis or regurgitation. Tricuspid Valve Structurally normal tricuspid valve. Moderate tricuspid regurgitation. No tricuspid stenosis. Pulmonic Valve Structurally normal pulmonic valve. Trace pulmonic regurgitation. No pulmonic stenosis. Pericardium No pericardial or pleural effusion. Aorta Normal size aortic root and proximal ascending aorta. CONCLUSIONS Left ventricular ejection fraction 55-60% Mildly increased left ventricular wall thickness RVSP 46 Mild to moderately dilated left atrium Mild to moderate mitral regurgitation Moderate tricuspid regurgitation No pericardial effusion Previewed by: Dr. Raul Henry DO (Electronically Signed) Final Date: 27 September 2023 15:45
== END | disposition home or self-care (01) ==
LOC: RADECHMAIN 11:21
PROVIDERS: ATTEND Internal Medicine
DX: I27.21 Secondary pulmonary arterial hypertension (principal); I08.1 Rheumatic disorders of both mitral and tricuspid valves
CPT/HCPCS: 93306

== ENCOUNTER → 2024-01-24 | Outpatient (CLI) | payer MEDICARE ==
--- NOTE | 2024-01-31 10:22 | P.PCN ---
Date of Procedure: 01/24/24 Operative Findings: This is a home sleep study report Date of service is 01/24/2024 History A 73-year-old female patient being evaluated for pulmonary hypertension and a home sleep study was ordered to rule out underlying obstructive sleep apnea or nocturnal oxygen desaturations contributing to her pulm hypertension. Pertinent physical findings The patient is 5 feet and 4 inches, weight is 182 with a BMI of 31.2 Technical description The [employer] system was used to complete his home sleep study. This is a type III home sleep study evaluation. Total recording duration was 8 hours. The study started at 11:10 PM and ended at 7:11 AM. This was an adequate study as the patient had a total of 7 hours and 49 minutes of flow evaluation and 7 hours and 50 minutes of oxygen saturation evaluations. Results Respiratory analysis showed a total of 5 obstructive apneas and 13 obstructive hypopneas and the resulting AHI was 2.3 Oxygenation analysis The patient had a baseline pulse ox of 96% room air oxygen. Average pulse ox was 94%. Lowest pulse ox of 89%. No significant desaturations under 89%. Cardiac summary Average heart rate of 55 with a minimum heart rate of 45 and a maximum rate of 89 Assessment Primary snoring without evidence of any sleep breathing disorder. AHI is at 2. 3. No significant nocturnal oxygen desaturations Assessment This is a negative study for sleep breathing disorder. No oxygen desaturations. Patient needs to be screened for alternative causes of pulmonary hypertension other than sleep breathing disorder.
== END ==
LOC: 3 N SLEEP 13:28
PROVIDERS: ATTEND Internal Medicine Critical Care Medicine
DX: G47.33 Obstructive sleep apnea (adult) (pediatric) (principal); I27.20 Pulmonary hypertension, unspecified; Z88.5 Allergy status to narcotic agent; Z79.899 Other long term (current) drug therapy; Z87.891 Personal history of nicotine dependence

== ENCOUNTER → 2024-03-04 | Outpatient (CLI) | payer MEDICARE ==
[2024-03-04 15:28] LABS: NT-Pro-B-Type Natriuretic Pept 636 pg/mL (0-125)
[2024-03-04 15:43] LABS: BUN/Creat Ratio 22.87 Ratio (12.00-20.00); Blood Urea Nitrogen 34.3 mg/dL (9.0-27.0); Calcium 9.4 mg/dL (8.7-10.3); Carbon Dioxide 25.2 mmol/L (21.6-31.8); Chloride 102 mmol/L (96-109); Glucose 91 mg/dL (70-110); Potassium 4.7 mmol/L (3.5-5.5); Sodium 141 mmol/L (135-145)
== END | disposition home or self-care (01) ==
LOC: LABWHC1 10:03
PROVIDERS: ATTEND Internal Medicine Cardiovascular Disease
DX: I50.9 Heart failure, unspecified (principal); I42.8 Other cardiomyopathies; I51.9 Heart disease, unspecified; D50.9 Iron deficiency anemia, unspecified; D64.9 Anemia, unspecified; D86.85 Sarcoid myocarditis; D86.0 Sarcoidosis of lung
CPT/HCPCS: 36415; 80048; 83735; 83880

== ENCOUNTER → 2024-04-14 | Outpatient (CLI) | payer MEDICARE ==
--- NOTE | 2024-04-14 13:26 | MM ---
Reason for Exam: Screening (asymptomatic). Last screening mammogram was performed 12 month(s) ago. Patient History: Menarche at age 9. First Full-Term at age 21. Hysterectomy at age 35. Postmenopausal. Patient has history of breast feeding. Breast cancer, left, age 51. Estrogen for 1 year from age 35 until age 36. Patient used Hormonal Contraceptives for 10 years. Tamoxifen for 5 years from age 51 until age 56. Lumpectomy on the Left side. Core Biopsy on the Left side. Excisional Biopsy on the Left side. 12/06/2015, High risk Core Biopsy on the right side. 05/08/2002, High risk Excisional Biopsy on the left side. 04/24/2002, High risk Stereotactic Core Biopsy on the left side. 04/24/2002, High risk Stereotactic Core Biopsy on the left side. Mother had breast cancer, age 70. Prior Study Comparison: 03/22/2020 Bilateral Diagnostic Mammogram, [facility]. 02/15/2022 Bilateral MG 3D screening mammo w/cad, [facility]. 04/01/2023 Bilateral MG 3D screening mammo w/cad, [facility]. Tissue Density: The breasts are almost entirely fatty. Findings: Analyzed By CAD. Right breast: There is no suspicious group of microcalcifications or new suspicious mass. Benign-appearing calcifications right breast. Left breast: There is no suspicious group of microcalcifications or new suspicious mass. Overall Assessment: Benign, BI-RAD 2 Management: Screening Mammogram of both breasts in [address] [facility] will attempt to contact patient to return for supplemental views and ultrasound if indicated. Patient should continue monthly self-breast exams. A clinical breast exam by your physician is recommended on an annual basis. This exam should not preclude additional follow-up of suspicious palpable abnormalities. Note on Geovanna scores and lifetime risk: 1. A Geovanna score greater than 3% is considered moderate risk. If this is the case, consider specialist referral to assess eligibility for a risk reducing agent. 2. If overall lifetime risk for the development of breast cancer is 20% or higher, the patient may qualify for future screening with alternating mammogram and breast MRI. [facility], , 04/14/2024 1:22 PM. Electronically signed and approved by: Scooby Vernon DO
== END | disposition home or self-care (01) ==
LOC: RADMAMWWP 12:51
PROVIDERS: ATTEND Internal Medicine
DX: Z12.31 Encounter for screening mammogram for malignant neoplasm of breast (principal); R92.313 Mammographic fatty tissue density, bilateral breasts; Z78.0 Asymptomatic menopausal state; Z80.3 Family history of malignant neoplasm of breast; R92.1 Mammographic calcification found on diagnostic imaging of breast
CPT/HCPCS: 77063; 77067

== ENCOUNTER → 2024-07-08 | Outpatient (CLI) | payer MEDICARE ==
[2024-07-08 15:40] LABS: BUN/Creat Ratio 21.25 Ratio (12.00-20.00); Blood Urea Nitrogen 25.5 mg/dL (9.0-27.0); Calcium 9.5 mg/dL (8.7-10.3); Carbon Dioxide 26.3 mmol/L (21.6-31.8); Chloride 104 mmol/L (96-109); Glucose 94 mg/dL (70-110); Magnesium 2.1 mg/dL (1.5-2.4); Potassium 4.4 mmol/L (3.5-5.5); Sodium 141 mmol/L (135-145)
[2024-07-08 15:45] LABS: NT-Pro-B-Type Natriuretic Pept 747 pg/mL (0-450)
== END | disposition home or self-care (01) ==
LOC: LABWHC1 09:12
PROVIDERS: ATTEND Internal Medicine Cardiovascular Disease
DX: I50.9 Heart failure, unspecified (principal); D50.9 Iron deficiency anemia, unspecified; I51.9 Heart disease, unspecified; I42.8 Other cardiomyopathies; D64.9 Anemia, unspecified; D86.85 Sarcoid myocarditis; D86.0 Sarcoidosis of lung
CPT/HCPCS: 36415; 80048; 83735; 83880

== ENCOUNTER 2024-07-16 15:35 | Day surgery (SDC) | payer MEDICARE ==
[~2024-07-16 15:35] MED LIST changes: -SODIUM CHLORIDE 0.9% 1,000 ML IV SCH; +ceFAZolin 2 GM in DEXTROSE 5% IN WATER 50 ML IVPB PRN
[2024-07-16] MEDS: IV FLUID CONTINUATION 1,000 ML IV ONE (15:50)
[2024-07-16] MEDS: SODIUM CHLORIDE 0.9% 500 ML 500 ML IV ONE (15:50)
[2024-07-16] MEDS: SODIUM CHLORIDE 0.9% 1,000 ML IV SCH ×2 (16:14)
[2024-07-16 16:23] VITALS: RESP 16; TEMP 98
[2024-07-16] MEDS: fentaNYL (PF) 50 MCG/ML 2 ML AMP IVP ONE (16:48)
[2024-07-16] MEDS: LIDOCAINE 1% INJ 10MG/ML (20 ML MDV) SQ ONE (16:50)
--- NOTE | 2024-07-16 16:56 | P.EPPROC ---
- EP Procedure Note Electrophysiology Procedure Note: Procedure: Loop explant under sedation and local anesthesia. Under sedation Diagnosis: Loop monitor at [facility] Patient was brought to the EP lab in a fasting state. Written informed consent was obtained prior to the procedure. The subcutaneous device was successfully explanted under local anesthesia. Preoperative antibiotics were administered. The wound was closed in layers and dressed per protocol. Result: Successful loop monitor explantation. Patient underwent EP procedure under conscious sedation/moderate sedation, monitoring of the level of consciousness and physiologic parameters including but not limited to vital signs and oxygenation. Patient tolerated the procedure well without any acute complications. Start time: 1649 Stop time: 1656
[2024-07-16 17:36] VITALS: BP 155/78; PULSE 56
== END 2024-07-16 17:43 | disposition home or self-care (01) ==
LOC: CATHEP 15:35
PROVIDERS: ATTEND Internal Medicine Clinical Cardiac Electrophysiology
DX: Z45.09 Encounter for adjustment and management of other cardiac device (principal); I11.9 Hypertensive heart disease without heart failure; I47.19 Other supraventricular tachycardia; E78.5 Hyperlipidemia, unspecified; I07.1 Rheumatic tricuspid insufficiency; I65.23 Occlusion and stenosis of bilateral carotid arteries; R55 Syncope and collapse; Z79.82 Long term (current) use of aspirin; Z79.899 Other long term (current) drug therapy; Z82.49 Family history of ischemic heart disease and other diseases of the circulatory system
CPT/HCPCS: 33286; J0690; J2003; J3010